=== PATIENT | male | born 1990 | race Caucasian/White ===

== ENCOUNTER 2023-02-16 15:31 | Observation (INO) | payer OTHER, SELFPAY ==
[2023-02-16] VITALS (7 sets, daily range): BP systolic 134–158; BP diastolic 80–98; PULSE 73–97; RESP 18–20; TEMP 36.8–37.4; O2SAT 96–97; BMI 26.5; BMI 27.5
--- NOTE | 2023-02-16 15:53 | ED_ITS ---
HPI - Abdominal Pain General Chief Complaint: Abdominal Pain Stated Complaint: Abdominal Pain Time Seen by Provider: 02/16/23 15:46 Source: patient Mode of arrival: walk-in Limitations: no limitations History of Present Illness HPI narrative: patient is a 32-year-old male who presents to the emergency department for the evaluation of abdominal pain that began this morning. He states he had an episode of diarrhea preceding the abdominal pain and has had approximately six episodes of vomiting since the abdominal pain began. He has felt nauseous this afternoon but has had no persistent vomiting. He has had a previous appendectomy with subsequent resection in 7th grade. He has had no other abdominal surgeries. He was noted to develop an umbilical hernia which has been evaluated by his surgeon previously, no surgical intervention is planned or has been done for the umbilical hernia. He reports pain just to the left of the umbilical hernia and lower. He denies urinary symptoms. he states he had mild cold s ymptoms yesterday no significant other illness. No sick contacts in the home. Related Data Home Medications Medication Instructions Recorded Confirmed No Known Home Medications 02/16/23 02/16/23 Allergies Allergy/AdvReac Type Severity Reaction Status Date / Time No Known Drug Allergies Allergy Verified 02/16/23 15:36 Review of Systems ROS Constitutional Reports: chills; Denies: fever Ears, nose, mouth, and throat Denies: throat pain Cardiovascular Denies: chest pain Respiratory Denies: shortness of breath or cough Gastrointestinal Reports: abdominal pain, nausea, vomiting and diarrhea Genitourinary Denies: painful urination Musculoskeletal Denies: back pain or neck pain Integumentary/Breast Denies: rash Neurological Denies: headache PFSH PFS Medical History (Updated 02/16/23 @ 17:02 by MARTINE Fulton) Surgical History (Updated 02/16/23 @ 16:12 by Connie Austin) Social History Smoking status: Light tobacco smoker Exam Narrative Exam Narrative: Gen.: Awake, alert, in no distress Head: Normocephalic, atraumatic ENT: Moist mucous membranes Respiratory: No respiratory distress, lungs clear bilaterally Cardio: Regular rate and rhythm Gastrointestinal: Abdomen is soft, nondistended. small umbilical hernia that is soft and reducible noted. Mild tenderness to palpation of the left lower quadrant and left mid abdomen. No guarding or rebound. Extremities: Moves extremities equally Psych: Normal mood and affect Neuro: No focal neuro deficit Skin: Warm, dry, intact Constitutional Vital Signs, click to edit/add: Last Vital Signs Temp 99.4 F 02/16/23 15:38 Pulse 74 02/16/23 15:38 Resp 20 02/16/23 15:38 BP 146/91 H 02/16/23 16:10 Pulse Ox 97 02/16/23 15:38 O2 Del Method Room Air 02/16/23 16:10 Course Vital Signs Vital signs: Vital Signs Temperature 99.4 F 02/16/23 15:38 Pulse Rate 74 02/16/23 15:38 Respiratory Rate 20 02/16/23 15:38 Blood Pressure 156/89 H 02/16/23 15:38 Pulse Oximetry 97 02/16/23 15:38 Oxygen Delivery Method Room Air 02/16/23 15:38 Temperature 99.4 F 02/16/23 15:38 Pulse Rate 74 02/16/23 15:38 Respiratory Rate 20 02/16/23 15:38 Blood Pressure 146/91 H 02/16/23 16:10 Pulse Oximetry 97 02/16/23 15:38 Oxygen Delivery Method Room Air 02/16/23 16:10 MDM - Abdominal Pain MDM Narrative Medical decision making narrative: patient treated with IV fluids, Toradol, Levsin, Zofran with improvement. He had no episodes of emesis in the emergency department. Vital signs are stable. Lab studies show minimal leukocytosis but otherwise no lab abnormalities and CT of the abdomen and pelvis with IV contrast shows the patient has a high-grade mid small bowel obstruction with a transition point in the central abdomen. I discussed this with Dr. Kong ([id number]) for general surgery who recommended admitting the patient to the hospitalist with general surgery as a consult as well as flat/upright abdominal x-rays in the morning. Patient will be nothing by mouth except for ice chips and medications. We will defer an NG tube at this time as the patient is comfortable and not actively vomiting. Patient admitted to the hospitalist, Dr. Morejon (1). Medical Records Attestation: I reviewed the patient's medical records. Lab Data Attestation: I reviewed the patient's lab results. Labs: Lab Results 02/16/23 Range/Units 15:57 WBC 15.4 H (4.0-11.0) 10^3/uL RBC 5.61 (4.70-6.10) 10^6/uL Hgb 16.4 (14.0-18.0) g/dL Hct 48.8 (42.0-54.0) % MCV 87.0 (80.0-94.0) fL MCH 29.2 (25.9-34.0) pg MCHC 33.6 (29.9-35.2) g/dL RDW 12.4 (11.0-15.0) % Plt Count 312 (150-450) 10^3/uL MPV 9.4 L (9.5-13.5) fL Neut % (Auto) 93.6 H (43.0-75.0) % Lymph % (Auto) 3.6 L (20.5-60.0) % [place] % (Auto) 2.1 (1.7-12.0) % Eos % (Auto) 0.0 L (0.9-7.0) % Baso % (Auto) 0.3 (0.2-2.0) % Neut # (Auto) 14.5 H (1.4-6.5) 10^3/uL Lymph # (Auto) 0.6 L (1.2-3.8) 10^3/uL [place] # (Auto) 0.3 (0.3-0.8) 10^3/uL Eos # (Auto) 0.0 (0.0-0.7) 10^3/uL Baso # (Auto) 0.0 (0.0-0.1) 10^3/uL Abs Immat Gran (auto) 0.06 H (0.00-0.03) 10^3/uL Imm/Tot Granulo (auto) 0.4 (0.0-0.5) % Sodium 134 L (136-145) mmol/L Potassium 3.8 (3.5-5.1) mmol/L Chloride 97 L (98-107) mmol/L Carbon Dioxide 26.8 (21.0-32.0) mmol/L Anion Gap 14.0 BUN 17.0 (7.0-18.0) mg/dL Creatinine 1.14 (0.70-1.30) mg/dL Est GFR ( Amer) >60 (>=60) Est GFR (Non-Af Amer) >60 (>=60) BUN/Creatinine Ratio 14.9 Glucose 124 H (74-106) mg/dL Lactate 1.8 (0.4-2.0) mmol/L Calcium 9.4 (8.5-10.1) mg/dL Total Bilirubin 0.4 (0.2-1.0) mg/dL AST 14 L (15-37) U/L ALT 23 (16-63) U/L Alkaline Phosphatase 88 (46-116) U/L Total Protein 8.2 (6.4-8.2) g/dL Albumin 4.5 (3.4-5.0) g/dL Globulin 3.7 g/dL Albumin/Globulin Ratio 1.2 Lipase 39.0 L (73.0-393.0) U/L Urine Color Yellow (YELLOW) Urine Clarity Clear (CLEAR) Urine pH 6.5 (5.0-9.0) Ur Specific [place] 1.025 (1.005-1.025) Urine Protein Trace (NEG/TRACE) mg/dL Urine Glucose (UA) Negative (NEGATIVE) mg/dL Urine Ketones 40 A (NEGATIVE) mg/dL Urine Occult Blood Negative (NEGATIVE) Urine Nitrite Negative (NEGATIVE) Urine Bilirubin Negative (NEGATIVE) Urine Urobilinogen 0.2 (0.2-1.0) EU/dL Ur Leukocyte Esterase Negative (NEGATIVE) Imaging Data CT scan - abdomen: Attestation: I have reviewed the pertinent imaging results. Radiologist's impression: Patient Name: CLAIRE BRAUN MRN: [facility]:[id number] date: 1990 Sex: M Assigned Patient Location: ER Current Patient Location: ER Accession/Order Number: [id number] Exam Date: 02/16/2023 16:16 Report Date: 02/16/2023 16:49 At the request of: SHIV WHITFIELD Procedure: CT abdomen pelvis w con EXAM: CT abdomen pelvis w con; [id number] REASON FOR EXAM: Abdominal pain TECHNIQUE: Helical CT images of the abdomen and pelvis were obtained after the administration of IV contrast. Multiplanar reformats were generated at the scanner. Dose reduction technique used: Automated exposure control and/or adjustment of the mA and/or kV according to patient size and/or use of iterative reconstruction technique. COMPARISON: None. FINDINGS: Visualized Chest: No pleural effusion or any significant pulmonary findings. Abdomen: Liver: Within normal limits. Gallbladder: No calcified gallstones. No acute inflammatory changes. Bile Ducts: No significant biliary ductal dilatation. Pancreas: No mass, ductal dilatation, or inflammatory changes. Spleen: No splenomegaly or focal lesion. Adrenals: No nodules. Kidneys: -No stones or hydronephrosis. -No mass. Vascular: No aortic aneurysm. Lymph Nodes: No adenopathy. Abdominal Wall: Small/medium sized fat-containing periumbilical hernia. There is a small amount of fluid within this hernia. Pelvis: No mass or adenopathy. Bowel/Peritoneal Cavity/Mesentery: -Short segment of moderately distended mid small bowel which measures up to 4.4 cm in diameter (series 3 image 67). Angulated transition point to decompressed bowel in the midabdomen (series 5 image 23). -Trace perienteric inflammatory changes surrounding the distended small bowel. -No free air. Musculoskeletal: No acute fracture or suspicious osseous lesion. IMPRESSION: Findings compatible with high-grade mid small bowel obstruction with transition point in the central abdomen. No imaging evidence of bowel ischemia or perforation. Electronically authenticated by: CHENG BOUDREAUX Date: 02/16/2023 16:49 Discharge Plan Discharge Chief Complaint: Abdominal Pain Patient Disposition: Admitted As Inpatient Time of Disposition Decision: 17:02
[2023-02-16 16:03] LABS: Basophils Percent Auto 0.3 % (0.2-2.0); Hematocrit 48.8 % (42.0-54.0); Hemoglobin 16.4 g/dL (14.0-18.0); Immature Granulocytes Abs Auto 0.06 10^3/uL (0.00-0.03); Immature Granulocytes Pct Auto 0.4 % (0.0-0.5); Lymphocytes Absolute Auto 0.6 10^3/uL (1.2-3.8); Lymphocytes Percent Auto 3.6 % (20.5-60.0); Mean Corpuscular HGB Conc 33.6 g/dL (29.9-35.2); Mean Corpuscular Hemoglobin 29.2 pg (25.9-34.0); Mean Platelet Volume 9.4 fL (9.5-13.5); Monocytes Absolute Auto 0.3 10^3/uL (0.3-0.8); Monocytes Percent Auto 2.1 % (1.7-12.0); Neutrophils Absolute Auto 14.5 10^3/uL (1.4-6.5); Neutrophils Percent Auto 93.6 % (43.0-75.0); Platelet Count 312 10^3/uL (150-450); Red Blood Count 5.61 10^6/uL (4.70-6.10); Red Cell Distribution Width 12.4 % (11.0-15.0); White Blood Count 15.4 10^3/uL (4.0-11.0)
[2023-02-16] MEDS: 0.9 % SODIUM CHLORIDE 1,000 ML 999 ML IV (16:04)
[2023-02-16] MEDS: ONDANSETRON PF 4 MG/2 ML VIAL IV (16:04)
[2023-02-16] MEDS: KETOROLAC TROMETHAMINE 30 MG/ML VIAL IVP (16:04)
[2023-02-16] MEDS: HYOSCYAMINE SULFATE 0.125 MG TAB.SUBL SL (16:04)
[2023-02-16 16:17] LABS: Alanine Aminotransferase 23 U/L (16-63); Albumin Globulin Ratio 1.2; Albumin Level 4.5 g/dL (3.4-5.0); Alkaline Phosphatase 88 U/L (46-116); Aspartate Amino Transferase 14 U/L (15-37); BUN Creatinine Ratio 14.9; Bilirubin Total 0.4 mg/dL (0.2-1.0); Calcium 9.4 mg/dL (8.5-10.1); Carbon Dioxide 26.8 mmol/L (21.0-32.0); Chloride 97 mmol/L (98-107); Estimated GFR (African America >60 (>=60); Estimated GFR (Non-African Ame >60 (>=60); Globulin 3.7 g/dL; Glucose 124 mg/dL (74-106); Potassium 3.8 mmol/L (3.5-5.1); Sodium 134 mmol/L (136-145); Total Protein 8.2 g/dL (6.4-8.2)
[2023-02-16 16:22] LABS: Bilirubin Urine NEGATIVE (NEGATIVE); Blood Urine NEGATIVE (NEGATIVE); Clarity Urine CLEAR (CLEAR); Color Urine YELLOW (YELLOW); Glucose Urine UA NEGATIVE (NEGATIVE); Ketones Urine 40 mg/dL (NEGATIVE); Leukocyte Esterase Urine NEGATIVE (NEGATIVE); Nitrite Urine NEGATIVE (NEGATIVE); Protein Urine TRACE mg/dL (NEG/TRACE); Specific Gravity Urine 1.025 (1.005-1.025); Urobilinogen Urine 0.2 EU/dL (0.2-1.0); pH Urine 6.5 (5.0-9.0)
[2023-02-16 16:23] LABS: Urine Microscopic Indicated NO
[2023-02-16 16:31] LABS: Lactate/Lactic Acid 1.8 mmol/L (0.4-2.0)
[2023-02-16] MEDS: LACTATED RINGER'S SOLUTION 1,000 ML 125 ML IV (18:34)
[2023-02-16] MEDS: ENOXAPARIN SODIUM 40 MG/0.4 ML SYRINGE SUBQ (20:25)
[2023-02-16] MEDS: MORPHINE SULFATE 2 MG/ML SYRINGE 1 MG IV (20:25)
[2023-02-17] MEDS: KETOROLAC TROMETHAMINE 30 MG/ML VIAL IVP ×4 (00:07→23:50)
[2023-02-17] MEDS: LACTATED RINGER'S SOLUTION 1,000 ML 125 ML IV ×3 (02:19→19:18)
[2023-02-17 04:13] VITALS: BP 130/77; PULSE 104; RESP 16; TEMP 36.9; O2SAT 95
[2023-02-17 05:48] LABS: Basophils Percent Auto 0.3 % (0.2-2.0); Eosinophils Percent Auto 0.2 % (0.9-7.0); Hematocrit 46.3 % (42.0-54.0); Hemoglobin 15.5 g/dL (14.0-18.0); Immature Granulocytes Abs Auto 0.06 10^3/uL (0.00-0.03); Immature Granulocytes Pct Auto 0.5 % (0.0-0.5); Lymphocytes Absolute Auto 2.1 10^3/uL (1.2-3.8); Mean Corpuscular HGB Conc 33.5 g/dL (29.9-35.2); Mean Corpuscular Hemoglobin 29.4 pg (25.9-34.0); Mean Corpuscular Volume 87.9 fL (80.0-94.0); Mean Platelet Volume 9.5 fL (9.5-13.5); Monocytes Absolute Auto 1.4 10^3/uL (0.3-0.8); Monocytes Percent Auto 10.8 % (1.7-12.0); Neutrophils Absolute Auto 9.5 10^3/uL (1.4-6.5); Neutrophils Percent Auto 72.2 % (43.0-75.0); Platelet Count 301 10^3/uL (150-450); Red Blood Count 5.27 10^6/uL (4.70-6.10); Red Cell Distribution Width 12.5 % (11.0-15.0); White Blood Count 13.1 10^3/uL (4.0-11.0)
--- NOTE | 2023-02-17 06:00 | XR_ITS ---
The [address] [address] Patient Name: CLAIRE BRAUN MRN: [id number] date: 1990 Sex: M Assigned Patient Location: [place] Current Patient Location: [place] Accession/Order Number: [id number] Exam Date: 02/17/2023 05:18 Report Date: 02/17/2023 06:53 At the request of: DANIEL FREEMAN Procedure: XR acute abdomen series EXAMINATION: XR acute abdomen series HISTORY: sbo ; small bowel obstruction follow-up COMPARISON: CT abdomen pelvis 02/16/2023 FINDINGS: LUNGS: No infiltrate, pneumothorax, or pleural effusion. MEDIASTINUM: No abnormal widening. BOWEL GAS PATTERN: Persistent stool-filled dilated loop of small bowel within lower left abdomen 5.4 cm in diameter. Adjacent loop of small bowel with fluid level. Unremarkable colon. FREE AIR: None. CALCIFICATIONS: None significant. BONES: No fracture or visible bone lesion. OTHER: Negative. XR/XR acute abdomen series IMPRESSION: 1. Persistence dilated stool-filled loop of small bowel within lower left abdomen suggesting obstruction. Allowing for differences in technique, no appreciable change. Electronically authenticated by: RGADY CAMEJO Date: 02/17/2023 06:53
[2023-02-17 06:02] LABS: Alanine Aminotransferase 30 U/L (16-63); Albumin Globulin Ratio 1.1; Albumin Level 3.8 g/dL (3.4-5.0); Alkaline Phosphatase 76 U/L (46-116); Anion Gap 11.7; Aspartate Amino Transferase 13 U/L (15-37); BUN Creatinine Ratio 10.7; Bilirubin Total 0.8 mg/dL (0.2-1.0); Calcium 8.8 mg/dL (8.5-10.1); Chloride 104 mmol/L (98-107); Estimated GFR (African America >60 (>=60); Estimated GFR (Non-African Ame >60 (>=60); Globulin 3.6 g/dL; Glucose 100 mg/dL (74-106); Potassium 3.7 mmol/L (3.5-5.1); Sodium 141 mmol/L (136-145); Total Protein 7.4 g/dL (6.4-8.2)
--- NOTE | 2023-02-17 08:36 | PM.HP ---
H&P: HPI History of Present Illness Chief complaint: Abdominal Pain, Small Bowel Obstruction Narrative: patient is a 32 year old [place] male with past medical history of abdominal surgeries. In the second grade had ruptured appendix which lead to bowel resection. In the 7th grade he had a surgery for bowel obstruction secondary to adhesions. He thinks over the years he may have had some obstructions but they all resolved at home. This is his first hospitalization for SBO. He was experiencing some nausea/vomiting, presented to the ER yesterday. X-ray showed SBO. Was admitted for further plan of care. Pain has been under control with Toradol. He denies any n/v/d and has been passing gas. He denies any other medical history, non-smoker, has an active job. He has an umbilical hernia that has been observed over the years, never causing him issues. No fevers. pain controlled. His mother is also present at bedside. Review of Systems ROS Narrative ROS: a complete review of systems were reviewed with patient and are positive as below or listed in History of Chief Complaint. General: no fever, chills, night sweats Head: no headache, trauma, visual changes, nausea or vomiting Skin: no reported rashes, itching or sores Eyes: no blurriness of vision Ears: no reported hearing loss, vertigo, earache, or tinnitus Throat: no sore throat, hoarseness, swelling of neck, or tongue pain Heart: no chest pain Lungs: no shortness of breath or cough GI: no diarrhea, but some vomiting/nausea Urinary: no urinary urgency, frequency or pain Neuro: no numbness or tingling HEM: no bleeding issues or bruising ENDO: no thyroid problems Psych: no anxiety or depression PFSH PFSH Medical History Surgical History Family History Other Family history not known due to adoption Social History Within the past year, how often did you have a drink containing alcohol: 2-3 times a week Within the past year, how many standard drinks containing alcohol did you have on a typical day: 1 or 2 Within the past year, how often did you have six or more drinks on one occasion: less than monthly Total score: 1 Score interpretation: A score of 4 or more indicates drinking is likely to affect patient's safety. Smoking status: Light tobacco smoker Do you use any of these nicotine containing products: vaping products Nicotine containing products detail: vape marijuana Non-prescribed substance use: cannabis (any form) Previous occupational history: [employer] Highest level of school completed/degree received: high school graduate Are you now , , , , never or living with a partner: Little interest or pleasure in doing things: not at all Feeling down, depressed, or hopeless: not at all Feel stressed/tense/nervous/anxious/difficulty sleeping: not at all Gender Identity: male Meds Home Medications and Allergies Home Medications Medication Instructions Recorded Confirmed Type No Known Home Medications 02/16/23 02/16/23 History Allergies Allergy/AdvReac Type Severity Reaction Status Date / Time No Known Drug Allergies Allergy Verified 02/16/23 15:36 Exam Narrative Exam Narrative: General: Patient is alert, and oriented to person, place and time with normal affect, proper hygiene Skin: no visible rashes, or ulcers Head: atraumatic, acephalic Eyes: PERRLA, no nystagmus present, conjunctiva clear, no scleral icterus Ears: normal gross auditory acuity Nose: symmetric, no discharge, no maxillary or frontal sinus tenderness Mouth/Throat: no erythema, exudate, or tonsillar enlargement, normal dentition Neck: no masses palpated, normal thyroid, no JVD or audible carotid bruits Heart: Normal rate and rhythm, no murmurs/rubs/gallops Lungs: no audible wheezes, crackles and normal breath sounds all lung [place] Abdomen: hyperactive bowel sounds, no distension, reducible umbilical hernia, no organomegaly, some tenderness palpated LLQ Musculoskeletal: muscle atrophy noted, ROM is limited due to being in hospital bed, no swelling bilateral lower extremities Vascular: Normal carotid, radial, femoral, posterior tibial, and dorsalis pedis pulses Lymph: no supraclavicular, axillary, or anterior/posterior cervical adenopathy Neuro: CN II-X grossly intact, normal sensation upper and lower extremities Constitutional Vital Signs, click to edit/add: Last Vital Signs Temp 98.5 F 02/17/23 04:13 Pulse 104 H 02/17/23 04:13 Resp 16 02/17/23 04:13 BP 130/77 02/17/23 04:13 Pulse Ox 95 02/17/23 04:13 O2 Del Method Room Air 02/17/23 04:13 Results Labs Labs: Short CBC 02/16/23 02/17/23 Range/Units 15:57 05:34 WBC 15.4 H 13.1 H (4.0-11.0) 10^3/uL Hgb 16.4 15.5 (14.0-18.0) g/dL Hct 48.8 46.3 (42.0-54.0) % Plt Count 312 301 (150-450) 10^3/uL BMP 02/16/23 02/17/23 15:57 05:37 Sodium 134 L 141 Potassium 3.8 3.7 Chloride 97 L 104 Carbon Dioxide 26.8 29.0 BUN 17.0 13.0 Creatinine 1.14 1.21 Glucose 124 H 100 Calcium 9.4 8.8 Liver Function 02/16/23 02/17/23 Range/Units 15:57 05:37 Total Bilirubin 0.4 0.8 (0.2-1.0) mg/dL AST 14 L 13 L (15-37) U/L ALT 23 30 (16-63) U/L Alkaline Phosphatase 88 76 (46-116) U/L Albumin 4.5 3.8 (3.4-5.0) g/dL Urine 02/16/23 Range/Units 15:57 Urine Color Yellow (YELLOW) Urine Clarity Clear (CLEAR) Urine pH 6.5 (5.0-9.0) Ur Specific [place] 1.025 (1.005-1.025) Urine Protein Trace (NEG/TRACE) mg/dL Urine Glucose (UA) Negative (NEGATIVE) mg/dL Assessment and Plan Assessment and Plan (1) Small bowel obstruction: Assessment and Plan: surgery consult, Dr. Kong. Following recommendations. Bowel rest, NPO. Not requiring NG. Labs stable, repeat X-ray is unchanged. continue bowel rest, encourage ambulation. WBC's 15.4 to 13.1. continue IVF and pain control as needed with Toradol. (2) Abdominal pain: (3) Intestinal adhesions: Plan full code lovenox for DVT prophylaxis patient is in observation status, is not requiring NG.
[2023-02-17] MEDS: ENOXAPARIN SODIUM 40 MG/0.4 ML SYRINGE SUBQ (08:58)
--- NOTE | 2023-02-17 09:27 | CM.NOTE ---
Rounding with Dr. Morejon. Patient's mother at bedside. Discussed nausea improved, no NG at this time, continue IV fluids, encouraged ambulation. Pt. also voices he is passing gas. Pt. denies any needs at this time. Surgeon discussed conservative measures with Dr. Morejon at this time. No anticipated discharge needs.
--- NOTE | 2023-02-17 10:06 | P.GSCN_ITS ---
History of Present Illness Consult details Consult date: 02/17/23 Reason for consult: abdominal pain Requesting physician: Daniel Morejon Narrative: Patient is a 32-year-old white male, who is seen in consultation at the request of the attending hospitalist Dr. Daniel Morejon. Consultation is requested for surgical evaluation and management recommendations in regard to a patient presenting with acute left lower quadrant abdominal pain in association with both nausea and vomiting. The patient is seen in surgical consultation on the MedSurg unit at [facility], at 0915 hrs. 02/17/2023. In the course of consultation, the patient's electronic medical record is comprehensively reviewed. The patient is interviewed and examined. The results of all available laboratory tests are reviewed and noted. Both a diagnostic contrast-enhanced CT scan examination of the abdomen and pelvis, and a follow-up acute abdominal series are personally viewed and interpreted. According to the patient, he had been feeling well when he went to bed on the evening of 02/15/2023. Upon awakening at around 0700 hrs. 02/16/2023, the patient noticed some cramping discomfort in the periumbilical and left lower quadrant regions of his abdomen. He got his kids off to school on their first day, and then ended up going back to bed at around 0900 hrs. Shortly thereafter, the patient was suddenly awakened with intense nausea and ended up vomiting approximately 6 times in succession. As the day progressed, the vomiting subsided but the patient continued to experience constant intense pain and discomfort in his left lower quadrant. By afternoon, the patient realized that something was just not right, and he elected to seek care in the emergency department at [facility]. Upon presentation, routine lab work was obtained. A diagnostic contrast- enhanced CT scan examination of the abdomen and pelvis was performed. By history, this patient had undergone an open appendectomy at the approximate age of 5. Nearly 5 years later, the patient required a second laparotomy for management of a high-grade small bowel obstruction. The patient recalls that his intestine had twisted but he is uncertain as to whether the operation entailed an intestinal resection or simple reduction of the volvulus. Clinically, the patient denies any fever or chills. He has not recently been in contact with any other sick individuals. The patient does report having had a loose diarrheal stool at the time of the onset of his pain 02/16/2023. His bowels have not moved since he has been here in the hospital. Initial evaluation in the emergency department showed an elevation in white blood cell count of 15,400 with a slight shift in the white cell differential. The patient was seen to be hyponatremic and hypochloremic owing to the history of vomiting. Hepatic transaminase levels were within normal limits. Diagnostic CT scan examination of the abdomen and pelvis 02/16/2023, using IV contrast only, shows an isolated segment of moderately distended mid small bowel measuring 4.4 cm in diameter. There is fecalization of small bowel contents within this segment. There is suggestion of an angulated transition point beyond which the small intestine appears decompressed. Minimal perienteric inflammatory changes are noted. There is no evidence of free fluid or free air. Moderate amount of stool is seen distributed throughout the colon. Incidental note is made of a periumbilical incisional ventral hernia. The hernia contains adipose tissue only. There is no evidence of inguinal hernia. Following 16 hours of inpatient hospitalization, the patient reports that he is feeling significantly better this morning. He no longer reports any nausea. He has not vomited since yesterday morning. Through the mock up maker hours, the patient has been passing copious amounts of flatus. He has not had a bowel movement since he was hospitalized last evening. The patient notes that the intensity of discomfort in his left lower quadrant has lessened considerably. He still reports some residual tenderness and pressure in this area. Patient denies feeling bloated. He does not note any visible distention of his abdomen. The abdomen is otherwise soft. Patient denies any difficulty urinating. Repeat laboratory profile 02/17/2023, shows a decrease in white blood cell count at 13,100. The white cell differential was normal. Serum electrolytes are normal, with normalization of both sodium and potassium. Hepatic transaminase levels are normal. Follow-up acute abdominal series 02/17/2023, shows persistence of a stool-filled dilated loop of small bowel within the left lower quadrant. An adjacent air- fluid level is noted. Gas and stool are seen distributed throughout the colon. Allowing for differences in technique, picture does not appear significantly different radiographically in comparison to last evenings CT scan. Review of Systems ROS Narrative 12 point review of systems is negative except as documented in [place] [facility] [place] History Surgical History Family History Other Family history not known due to adoption Social History Within the past year, how often did you have a drink containing alcohol: 2-3 times a week Within the past year, how many standard drinks containing alcohol did you have on a typical day: 1 or 2 Within the past year, how often did you have six or more drinks on one occasion: less than monthly Total score: 1 Score interpretation: A score of 4 or more indicates drinking is likely to affect patient's safety. Smoking status: Light tobacco smoker Do you use any of these nicotine containing products: vaping products Nicotine containing products detail: vape marijuana Non-prescribed substance use: cannabis (any form) Previous occupational history: [employer] Highest level of school completed/degree received: high school graduate Are you now , , , , never or living with a partner: Little interest or pleasure in doing things: not at all Feeling down, depressed, or hopeless: not at all Feel stressed/tense/nervous/anxious/difficulty sleeping: not at all Gender Identity: male Meds Home Medications and Allergies Home Medications Medication Instructions Recorded Confirmed Type No Known Home Medications 02/16/23 02/16/23 History Allergies Allergy/AdvReac Type Severity Reaction Status Date / Time No Known Drug Allergies Allergy Verified 02/16/23 15:36 Exam Constitutional Vital Signs, click to edit/add: Last Vital Signs Temp 98.5 F 02/17/23 04:13 Pulse 104 H 02/17/23 04:13 Resp 16 02/17/23 04:13 BP 130/77 02/17/23 04:13 Pulse Ox 95 02/17/23 04:13 O2 Del Method Room Air 02/17/23 04:13 Other: Well-developed, well-nourished, young, otherwise healthy white male. No a pparent distress. HENMT Other: Head normocephalic and atraumatic. Pupils equally round and reactive to light. Extraocular movements intact. The nasal and oropharynx are clear without erythema or exudate. Mucous membranes are moist. There are no oral or pharyngeal mass lesions. Neck & C-Spine Other: Trachea midline. Carotid pulses 2+ bilaterally. No thyromegaly. No jugular venous distention. Chest Other: Unlabored respirations. Equal chest wall expansion bilaterally. Lungs are clear to auscultation bilaterally. Cardio Other: Heart regular rate and rhythm. Normal S1 and S2. GI Other: The abdomen is soft and nondistended. There is no tympany to percussion. No hepatosplenomegaly is detected. An intra-abdominal mass is not appreciated. Minimal tenderness is noted to palpation over the left lower quadrant. The right lower quadrant, suprapubic region, and upper quadrants bilaterally are all nontender. Flanks are nontender. There is no muscular wall rigidity or guarding. No rebound tenderness is elicited. Well-healed incisions are seen from previous laparotomy. There is an approximate 4 cm reducible periumbilical incisional ventral hernia. Other: Normal male external genitalia. No evidence of right or left inguinal hernia Extremity Other: Normal range of motion in all extremities x4. No cyanosis or dependent lower extremity edema. Neuro Other: Neurologic status grossly intact and without obvious focal deficits. Psych Other: Pleasant and conversant. Normal mood and affect. Good insight and understanding. Results Labs Labs: Abnormal lab results 02/16/23 02/17/23 02/17/23 Range/Units 15:57 05:34 05:37 WBC 15.4 H 13.1 H (4.0-11.0) 10^3/uL MPV 9.4 L (9.5-13.5) fL Neut % (Auto) 93.6 H (43.0-75.0) % Lymph % (Auto) 3.6 L 16.0 L (20.5-60.0) % Eos % (Auto) 0.0 L 0.2 L (0.9-7.0) % Neut # (Auto) 14.5 H 9.5 H (1.4-6.5) 10^3/uL Lymph # (Auto) 0.6 L (1.2-3.8) 10^3/uL Sac # (Auto) 1.4 H (0.3-0.8) 10^3/uL Abs Immat Gran (auto) 0.06 H 0.06 H (0.00-0.03) 10^3/uL Sodium 134 L (136-145) mmol/L Chloride 97 L (98-107) mmol/L Glucose 124 H (74-106) mg/dL AST 14 L 13 L (15-37) U/L Lipase 39.0 L (73.0-393.0) U/L Urine Ketones 40 A (NEGATIVE) mg/dL Diabetes panel 02/16/23 02/17/23 Range/Units 15:57 05:37 Sodium 134 L 141 (136-145) mmol/L Potassium 3.8 3.7 (3.5-5.1) mmol/L Chloride 97 L 104 (98-107) mmol/L Carbon Dioxide 26.8 29.0 (21.0-32.0) mmol/L BUN 17.0 13.0 (7.0-18.0) mg/dL Creatinine 1.14 1.21 (0.70-1.30) mg/dL Glucose 124 H 100 (74-106) mg/dL Calcium 9.4 8.8 (8.5-10.1) mg/dL AST 14 L 13 L (15-37) U/L ALT 23 30 (16-63) U/L Alkaline Phosphatase 88 76 (46-116) U/L Total Protein 8.2 7.4 (6.4-8.2) g/dL Albumin 4.5 3.8 (3.4-5.0) g/dL Calcium panel 02/16/23 02/17/23 Range/Units 15:57 05:37 Calcium 9.4 8.8 (8.5-10.1) mg/dL Albumin 4.5 3.8 (3.4-5.0) g/dL Pituitary panel 02/16/23 02/17/23 Range/Units 15:57 05:37 Sodium 134 L 141 (136-145) mmol/L Potassium 3.8 3.7 (3.5-5.1) mmol/L Chloride 97 L 104 (98-107) mmol/L Carbon Dioxide 26.8 29.0 (21.0-32.0) mmol/L BUN 17.0 13.0 (7.0-18.0) mg/dL Creatinine 1.14 1.21 (0.70-1.30) mg/dL Glucose 124 H 100 (74-106) mg/dL Calcium 9.4 8.8 (8.5-10.1) mg/dL Adrenal panel 02/16/23 02/17/23 Range/Units 15:57 05:37 Sodium 134 L 141 (136-145) mmol/L Potassium 3.8 3.7 (3.5-5.1) mmol/L Chloride 97 L 104 (98-107) mmol/L Carbon Dioxide 26.8 29.0 (21.0-32.0) mmol/L BUN 17.0 13.0 (7.0-18.0) mg/dL Creatinine 1.14 1.21 (0.70-1.30) mg/dL Glucose 124 H 100 (74-106) mg/dL Calcium 9.4 8.8 (8.5-10.1) mg/dL Total Bilirubin 0.4 0.8 (0.2-1.0) mg/dL AST 14 L 13 L (15-37) U/L ALT 23 30 (16-63) U/L Alkaline Phosphatase 88 76 (46-116) U/L Total Protein 8.2 7.4 (6.4-8.2) g/dL Albumin 4.5 3.8 (3.4-5.0) g/dL All other labs normal. Imaging Abdominal x-ray: report reviewed and image reviewed Abdomen CT scan report/results: report reviewed and image reviewed Additional studies: Patient Name: CLAIRE BRAUN MRN: [id number] date: 1990 Sex: M Assigned Patient Location: ER Current Patient Location: ER Accession/Order Number: [id number] Exam Date: 02/16/2023 16:16 Report Date: 02/16/2023 16:49 At the request of: SHIV WHITFIELD Procedure: CT abdomen pelvis w con EXAM: CT abdomen pelvis w con; [id number] REASON FOR EXAM: Abdominal pain TECHNIQUE: Helical CT images of the abdomen and pelvis were obtained after the administration of IV contrast. Multiplanar reformats were generated at the scanner. Dose reduction technique used: Automated exposure control and/or adjustment of the mA and/or kV according to patient size and/or use of iterative reconstruction technique. COMPARISON: None. FINDINGS: Visualized Chest: No pleural effusion or any significant pulmonary findings. Abdomen: Liver: Within normal limits. Gallbladder: No calcified gallstones. No acute inflammatory changes. Bile Ducts: No significant biliary ductal dilatation. Pancreas: No mass, ductal dilatation, or inflammatory changes. Spleen: No splenomegaly or focal lesion. Adrenals: No nodules. Kidneys: -No stones or hydronephrosis. -No mass. Vascular: No aortic aneurysm. Lymph Nodes: No adenopathy. Abdominal Wall: Small/medium sized fat-containing periumbilical hernia. There is a small amount of fluid within this hernia. Pelvis: No mass or adenopathy. Bowel/Peritoneal Cavity/Mesentery: -Short segment of moderately distended mid small bowel which measures up to 4.4 cm in diameter (series 3 image 67). Angulated transition point to decompressed bowel in the midabdomen (series 5 image 23). -Trace perienteric inflammatory changes surrounding the distended small bowel. -No free air. Musculoskeletal: No acute fracture or suspicious osseous lesion. CT/CT abdomen pelvis w con IMPRESSION: Findings compatible with high-grade mid small bowel obstruction with transition point in the central abdomen. No imaging evidence of bowel ischemia or perforation. Electronically authenticated by: CHENG BOUDREAUX Date: 02/16/2023 16:49 Patient Name: CLAIRE BRAUN MRN: [id number] date: 1990 Sex: M Assigned Patient Location: [place] Current Patient Location: [place] Accession/Order Number: [id number] Exam Date: 02/17/2023 05:18 Report Date: 02/17/2023 06:53 At the request of: DANIEL MOREJON Procedure: XR acute abdomen series EXAMINATION: XR acute abdomen series HISTORY: sbo ; small bowel obstruction follow-up COMPARISON: CT abdomen pelvis 02/16/2023 FINDINGS: LUNGS: No infiltrate, pneumothorax, or pleural effusion. MEDIASTINUM: No abnormal widening. BOWEL GAS PATTERN: Persistent stool-filled dilated loop of small bowel within lower left abdomen 5.4 cm in diameter. Adjacent loop of small bowel with fluid level. Unremarkable colon. FREE AIR: None. CALCIFICATIONS: None significant. BONES: No fracture or visible bone lesion. OTHER: Negative. XR/XR acute abdomen series IMPRESSION: 1. Persistence dilated stool-filled loop of small bowel within lower left abdomen suggesting obstruction. Allowing for differences in technique, no appreciable change. Electronically authenticated by: GRADY CAMEJO Date: 02/17/2023 06:53 Assessment and Plan Assessment and Plan (1) Small bowel obstruction: (2) Abdominal pain: (3) Intestinal adhesions: Plan 1) Following 16 hours of n.p.o./IV fluid hydration/bowel rest, patient appears to be improving clinically 2) Continue conservative nonoperative management 3) Small bowel follow-through Gastrografin challenge 4) Discussed with the attending hospitalist Dr. Daniel Morejon
[2023-02-17 11:34] VITALS: O2SAT 95
[2023-02-17] MEDS: ONDANSETRON PF 4 MG/2 ML VIAL IV (13:51)
[2023-02-17 13:55] VITALS: BP 130/80; PULSE 86; RESP 18; TEMP 36.9; O2SAT 96
--- NOTE | 2023-02-17 14:50 | FL_ITS ---
The [address] [address] Patient Name: CLAIRE BRAUN MRN: [id number] date: 1990 Sex: M Assigned Patient Location: [place] Current Patient Location: [place] Accession/Order Number: [id number] Exam Date: 02/17/2023 14:45 Report Date: 02/17/2023 15:11 At the request of: KRISTINA VALDES Procedure: FL small bowel EXAMINATION: FL small bowel HISTORY: Possible mid small bowel obstruction COMPARISON: 02/17/2023 TECHNIQUE: Small bowel series was performed in the usual manner. No fire systems inspector abdominal radiograph was performed. Standard level fluoroscopic mode of operation utilized. FINDINGS: DUODENUM: Normal. No ulceration or diverticulum. JEJUNUM: Normal. Normal motility. No obstruction. Dilated loop of small bowel in the left mid abdomen measuring 5.7 cm, contrast opacified. ILEUM: Normal. Normal motility. No obstruction or visible lesion. OTHER: Large bowel and rectum are opacified at one hour and 45 minutes FL/FL small bowel IMPRESSION: Nonobstructive bowel gas pattern. Dilated loop of small bowel in the left mid abdomen with contrast opacification Electronically authenticated by: NEYDA TERRAZAS Date: 02/17/2023 15:11
[2023-02-17 19:32] VITALS: O2SAT 96
[2023-02-17 20:00] VITALS: RESP 18
[2023-02-17 22:00] VITALS: BP 115/76; PULSE 93; RESP 16; TEMP 37; O2SAT 93
[2023-02-18] MEDS: LACTATED RINGER'S SOLUTION 1,000 ML 125 ML IV (03:36)
[2023-02-18 05:11] VITALS: O2SAT 95
[2023-02-18 05:12] LABS: Basophils Absolute Auto 0.1 10^3/uL (0.0-0.1); Basophils Percent Auto 0.6 % (0.2-2.0); Eosinophils Absolute Auto 0.1 10^3/uL (0.0-0.7); Eosinophils Percent Auto 1.3 % (0.9-7.0); Hematocrit 41.9 % (42.0-54.0); Hemoglobin 13.9 g/dL (14.0-18.0); Immature Granulocytes Abs Auto 0.03 10^3/uL (0.00-0.03); Immature Granulocytes Pct Auto 0.4 % (0.0-0.5); Lymphocytes Absolute Auto 2.3 10^3/uL (1.2-3.8); Lymphocytes Percent Auto 29.6 % (20.5-60.0); Mean Corpuscular HGB Conc 33.2 g/dL (29.9-35.2); Mean Corpuscular Hemoglobin 29.6 pg (25.9-34.0); Mean Corpuscular Volume 89.3 fL (80.0-94.0); Monocytes Percent Auto 12.3 % (1.7-12.0); Neutrophils Absolute Auto 4.3 10^3/uL (1.4-6.5); Neutrophils Percent Auto 55.8 % (43.0-75.0); Platelet Count 265 10^3/uL (150-450); Red Blood Count 4.69 10^6/uL (4.70-6.10); Red Cell Distribution Width 12.5 % (11.0-15.0); White Blood Count 7.7 10^3/uL (4.0-11.0)
[2023-02-18 05:38] LABS: Alanine Aminotransferase 26 U/L (16-63); Albumin Globulin Ratio 0.9; Albumin Level 3.3 g/dL (3.4-5.0); Alkaline Phosphatase 75 U/L (46-116); Anion Gap 6.3; Aspartate Amino Transferase 13 U/L (15-37); BUN Creatinine Ratio 13.6; Bilirubin Total 0.4 mg/dL (0.2-1.0); Calcium 8.3 mg/dL (8.5-10.1); Chloride 104 mmol/L (98-107); Estimated GFR (African America >60 (>=60); Estimated GFR (Non-African Ame >60 (>=60); Globulin 3.5 g/dL; Glucose 108 mg/dL (74-106); Potassium 3.3 mmol/L (3.5-5.1); Sodium 136 mmol/L (136-145); Total Protein 6.8 g/dL (6.4-8.2)
[2023-02-18 06:00] VITALS: BP 115/74; PULSE 80; RESP 18; TEMP 36.9; O2SAT 94
[2023-02-18 08:00] VITALS: RESP 18
--- NOTE | 2023-02-18 10:16 | PM.DS1 ---
DS: Providers Provider Date of admission: 02/16/23 17:47 Primary care physician: HODA ZHANG Admitting clinician: Monik Morejon Consults: 02/16/23 17:32 Consult to General Surgeon Routine Consulting Provider: Spencer Kong Reason for consultation: SBO Has provider been notified: Yes Discharging clinician: Monik Morejon DS: Diagnosis Discharge Diagnosis (1) Small bowel obstruction: (2) Abdominal pain: (3) Intestinal adhesions: DS: Summary Hospital Course Hospital Course: patient is a 32 year old male with past medical history of abdominal surgeries. In the second grade had ruptured appendix which lead to bowel resection. In the 7th grade he had a surgery for bowel obstruction secondary to adhesions. He thinks over the years he may have had some obstructions but they all resolved at home. This is his first hospitalization for SBO. He was experiencing some nausea/vomiting, presented to the ER yesterday. X-ray showed SBO. Was admitted for further plan of care. Pain has been under control with Toradol. He denies any n/v/d and has been passing gas. He denies any other medical history, non-smoker, has an active job. He has an umbilical hernia that has been observed over the years, never causing him issues. No fevers. Yesterday had a Small bowel follow-through Gastrografin challenge and the SBO resolved, he began having bowel movements. At the time of discharge, his symptoms have resolved. He is ready to go home. Status at Discharge Functional status at discharge: independent ambulation Overall status at discharge: patient is back to baseline Time Spent with Patient Time attestation: Total time spent providing and/or coordinating discharge services: Time spent: less than 30 minutes Exam Narrative Exam Narrative: General: Patient is alert, and oriented to person, place and time with normal affect, proper hygiene Skin: no visible rashes, or ulcers Head: atraumatic, acephalic Heart: Normal rate and rhythm, no murmurs/rubs/gallops Lungs: no audible wheezes, crackles and normal breath sounds all lung knutson Abdomen: Normal audible bowel sounds, no distension, No palpable masses, no organomegaly, no rebound/guarding/ or rigidity Musculoskeletal: muscle atrophy noted, ROM is limited due to being in hospital bed, no swelling bilateral lower extremities Vascular: Normal carotid, radial, femoral, posterior tibial, and dorsalis pedis pulses Lymph: no supraclavicular, axillary, or anterior/posterior cervical adenopathy Neuro: CN II-X grossly intact, normal sensation upper and lower extremities Constitutional Vital Signs, click to edit/add: Last Vital Signs Temp 98.5 F 02/18/23 06:00 Pulse 80 02/18/23 06:00 Resp 18 02/18/23 08:00 BP 115/74 02/18/23 06:00 Pulse Ox 94 L 02/18/23 06:00 O2 Del Method Room Air 02/18/23 06:00 DS: Data Data Completed and Pending Labs on day of discharge: Labs from last 24 hours 02/18/23 04:39 WBC 7.7 RBC 4.69 L Hgb 13.9 L Hct 41.9 L MCV 89.3 MCH 29.6 MCHC 33.2 RDW 12.5 Plt Count 265 MPV 10.0 Neut % (Auto) 55.8 Lymph % (Auto) 29.6 [place] % (Auto) 12.3 H Eos % (Auto) 1.3 Baso % (Auto) 0.6 Neut # (Auto) 4.3 Lymph # (Auto) 2.3 [place] # (Auto) 1.0 H Eos # (Auto) 0.1 Baso # (Auto) 0.1 Abs Immat Gran (auto) 0.03 Imm/Tot Granulo (auto) 0.4 Sodium 136 Potassium 3.3 L Chloride 104 Carbon Dioxide 29.0 Anion Gap 6.3 BUN 14.0 Creatinine 1.03 Est GFR ( Amer) >60 Est GFR (Non-Af Amer) >60 BUN/Creatinine Ratio 13.6 Glucose 108 H Calcium 8.3 L Total Bilirubin 0.4 AST 13 L ALT 26 Alkaline Phosphatase 75 Total Protein 6.8 Albumin 3.3 L Globulin 3.5 Albumin/Globulin Ratio 0.9 Discharge Plan Discharge Disposition: Home, Self-Care Condition: Good Discharge Medications: No Action No Known Home Medications Activity: resume usual activities as tolerated Diet: advance to your usual diet Patient Instructions: Acute Abdominal Pain (DC), Bowel Obstruction (DC) Forms: Portal Instructions Follow Up Appointments: Follow up appt. with Dr. Zhang on Feb.24 @ 10:30am Office #: [phone]
--- NOTE | 2023-02-18 10:38 | CM.NOTE ---
Rounds made with Dr. Morejon. Plan for discharge is today.
--- NOTE | 2023-02-19 13:49 | CM.DCFOLLOWU ---
Person spoke with:patient How are you feeling? a little tender, overall well, going back to work How is your pain? very little Did you understand your discharge instructions? yes Do you have any questions about your discharge instructions? no Were you given any prescriptions at discharge? no Were you able to get your prescriptions filled? Do you understand how to take your medications as ordered? N/A Do you have any questions about your follow up appointment and do you plan to keep your follow up appointment? no questions, follow up scheduled 02/24/23 Is there anything else that you would like to discuss? no Questions/Comments/Concerns/Other:
== END 2023-02-18 10:21 | disposition home or self-care (01) ==
LOC: ER 17:05 → MS 20:55
PROVIDERS: Physician Assistant; Admitting Provider Family Medicine; Emergency Provider Emergency Medicine Emergency Medical Services; PCP Internal Medicine; Visit Provider Family Medicine
DX: K56.50 Intestinal adhesions [bands], unspecified as to partial versus complete obstruction (principal); R10.9 Unspecified abdominal pain; F17.210 Nicotine dependence, cigarettes, uncomplicated; F12.90 Cannabis use, unspecified, uncomplicated
CPT/HCPCS: 36415; 74022; 74177; 74250; 80053; 81003; 83605; 83690; 85025; 94761; 96361; 96372; 96374; 96375; 96376; 99285; G0378; Q9963; Q9967

== ENCOUNTER 2023-02-23 10:51 | Emergency (ER) | payer OTHER, SELFPAY ==
[2023-02-23] VITALS (25 sets, daily range): BP systolic 106–154; BP diastolic 65–99; PULSE 62–127; RESP 14–26; TEMP 36.6–37.1; O2SAT 96–100; BMI 30.7
--- NOTE | 2023-02-23 11:05 | ECG_ITS ---
The 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
--- NOTE | 2023-02-23 11:07 | ED.GENADUL1 ---
HPI - General Adult General Chief complaint: Abdominal Pain Stated complaint: edilsonhhrea, dizziness Time Seen by Provider: 02/23/23 11:03 Source: patient Mode of arrival: Wheelchair History of Present Illness HPI narrative: patient here with parents she I believe. He presented to the hospital lobby today with R burgundy colored stools starting today. He was just released from this hospital recently after having a small bowel obstruction. He was treated medically. He did not have upper or lower endoscopy. He had no gastrointestinal bleeding at that time. He had previous surgeries when he was much younger ruptured appendix and small bowel obstruction but no recent procedures. He's not on any NSAIDs. He takes no anticoagulants. He says he drinks alcohol occasionally but not on a regular basis. Denies any previous history of hepatitis. He is not vomiting up any blood. He's not seen blood in the stools previously Related Data Home Medications Medication Instructions Recorded Confirmed No Known Home Medications 02/16/23 02/16/23 Allergies Allergy/AdvReac Type Severity Reaction Status Date / Time No Known Drug Allergies Allergy Verified 02/16/23 15:36 [facility] Medical History Surgical History Family History Other Family history not known due to adoption Social History Within the past year, how often did you have a drink containing alcohol: 2-3 times a week Within the past year, how many standard drinks containing alcohol did you have on a typical day: 1 or 2 Within the past year, how often did you have six or more drinks on one occasion: less than monthly Total score: 1 Score interpretation: A score of 4 or more indicates drinking is likely to affect patient's safety. Smoking status: Light tobacco smoker Do you use any of these nicotine containing products: vaping products Nicotine containing products detail: vape marijuana Non-prescribed substance use: cannabis (any form) Previous occupational history: [employer] Highest level of school completed/degree received: high school graduate Are you now , , , , never or living with a partner: Little interest or pleasure in doing things: not at all Feeling down, depressed, or hopeless: not at all Feel stressed/tense/nervous/anxious/difficulty sleeping: not at all Gender Identity: male Exam Narrative Exam Narrative: this patient was brought back to the Emergency Room immediately. He is diaphoretic and clammy and shocky appearance. Decreased pulses bilaterally. Nursing staff were able to establish two large-bore IVs immediately and they were patient was given crystalloid with pressure fusing bakes immediately. He was not unconscious he was awake and alert answering questions, and remarkably maintain a sense of humor throughout his entire stay here. Patient shows pallor in his conjunctiva. There is no scleral icterus. Head and neck is atraumatic. Airways widely patent. He is not vomiting. Respiratory his lungs are clear no wheezes rales or rhonchi. Heart sounds show no murmur. He is tachycardic. Skin was diaphoretic and clammy Electrolytes do not show evidence of edema swelling or phlebitis. Abdomen has a large infraumbilical incision from his previous surgeries but there is no peritoneal findings guarding or rebound rigidity. He had incontinence of stool and it was burgundy red colored liquid stool. Constitutional Vital Signs, click to edit/add: Last Vital Signs Temp 97.9 F 02/23/23 11:00 Pulse 100 H 02/23/23 14:10 Resp 19 02/23/23 14:10 BP 111/80 02/23/23 13:40 Pulse Ox 98 02/23/23 13:40 O2 Del Method Room Air 02/23/23 11:00 Course Vital Signs Vital signs: Vital Signs Temperature 97.9 F 02/23/23 11:00 Pulse Rate 104 H 02/23/23 11:00 Respiratory Rate 20 02/23/23 11:00 Blood Pressure 122/77 02/23/23 11:00 Pulse Oximetry 100 02/23/23 11:00 Oxygen Delivery Method Room Air 02/23/23 11:00 Temperature 97.9 F 02/23/23 11:00 Pulse Rate 100 H 02/23/23 14:10 Respiratory Rate 19 02/23/23 14:10 Blood Pressure 111/80 02/23/23 13:40 Pulse Oximetry 98 02/23/23 13:40 Oxygen Delivery Method Room Air 02/23/23 11:00 Medical Decision Making MDM Narrative Medical decision making narrative: the patient had a near syncopal episode with history of at least five copious bloody stools. Patient had type and screen and type and cross for two units of blood as I felt he might need urgent blood transfusion. He did stabilize after 2500 mL of crystalloid that was rapidly infused. His heart rate slowed. His pulse oximetry is cognition and mental status greatly improved. A follow-up hemoglobin today shows [facility] 12.9. When he was admitted back several days ago he came in the hemoglobin is approximate sixteen summaries had a slow gradual deterioration. His BUN/creatinine are normal today. I immediately placed a call to our on-call surgeon and he felt in lieu of the patient's recent CT findings and brisk blood loss he should be transferred to a tertiary care facility. We made connections with [facility] and I spoke with both the gastrointestinal doctor and the hospitalist and they agree that he should be transferred. We have repeated a repeat hemoglobin. Since he stabilized I hesitate giving him blood transfusions at this time. If it is below nine I will go ahead and start the blood transfusions. While here in the department, at the recommendation of Dr. Escalera on surgery, we did pass a nasogastric tube and irrigated it, there was actually no coffee-ground material or bloody material whatsoever so I withdrew with an nasogastric tube after the irrigation Lab Data Labs: Lab Results 02/23/23 Range/Units 11:00 WBC 16.1 H (4.0-11.0) 10^3/uL RBC 4.38 L (4.70-6.10) 10^6/uL Hgb 12.9 L (14.0-18.0) g/dL Hct 38.8 L (42.0-54.0) % MCV 88.6 (80.0-94.0) fL MCH 29.5 (25.9-34.0) pg MCHC 33.2 (29.9-35.2) g/dL RDW 12.3 (11.0-15.0) % Plt Count 410 (150-450) 10^3/uL MPV 9.8 (9.5-13.5) fL Neut % (Auto) 60.3 (43.0-75.0) % Lymph % (Auto) 29.7 (20.5-60.0) % [place] % (Auto) 8.2 (1.7-12.0) % Eos % (Auto) 0.7 L (0.9-7.0) % Baso % (Auto) 0.5 (0.2-2.0) % Neut # (Auto) 9.7 H (1.4-6.5) 10^3/uL Lymph # (Auto) 4.8 H (1.2-3.8) 10^3/uL [place] # (Auto) 1.3 H (0.3-0.8) 10^3/uL Eos # (Auto) 0.1 (0.0-0.7) 10^3/uL Baso # (Auto) 0.1 (0.0-0.1) 10^3/uL Abs Immat Gran (auto) 0.10 H (0.00-0.03) 10^3/uL Imm/Tot Granulo (auto) 0.6 H (0.0-0.5) % PT 10.3 (9.0-11.6) sec INR 0.97 APTT 22.6 (22.3-36.2) sec Sodium 141 (136-145) mmol/L Potassium 3.8 (3.5-5.1) mmol/L Chloride 107 (98-107) mmol/L Carbon Dioxide 24.2 (21.0-32.0) mmol/L Anion Gap 13.6 BUN 24.0 H (7.0-18.0) mg/dL Creatinine 1.17 (0.70-1.30) mg/dL Est GFR ( Amer) >60 (>=60) Est GFR (Non-Af Amer) >60 (>=60) BUN/Creatinine Ratio 20.5 Glucose 119 H (74-106) mg/dL Calcium 8.4 L (8.5-10.1) mg/dL Total Bilirubin 0.2 (0.2-1.0) mg/dL AST 20 (15-37) U/L ALT 37 (16-63) U/L Alkaline Phosphatase 66 (46-116) U/L Total Protein 6.8 (6.4-8.2) g/dL Albumin 3.5 (3.4-5.0) g/dL Globulin 3.3 g/dL Albumin/Globulin Ratio 1.1 Blood Type O Positive Antibody Screen Negative Crossmatch See Detail Critical Care Time Critical Care Time Total Critical Care Time: 60 Discharge Plan Discharge Chief Complaint: Abdominal Pain Clinical Impression: Gastrointestinal bleed Patient Disposition: [facility] Time of Disposition Decision: 14:23 Prescriptions / Home Meds: No Action No Known Home Medications Referrals: HOAD BALDERAS [Primary Care Provider] - 1 week
--- NOTE | 2023-02-23 11:30 | XR_ITS ---
The [address] [address] Patient Name: CLAIRE BRAUN MRN: [id number] date: 1990 Sex: M Assigned Patient Location: ER Current Patient Location: ED.MAIN Accession/Order Number: [id number] Exam Date: 02/23/2023 11:25 Report Date: 02/23/2023 11:39 At the request of: DIMITRI JIMÉNEZ Procedure: XR chest 1V EXAMINATION: XR chest 1V HISTORY: gastrointestinal bleed COMPARISON: No relevant comparison available. TECHNIQUE: Supine FINDINGS: LUNGS: No significant pulmonary parenchymal abnormalities. VASCULATURE: No increased pulmonary vasculature. PLEURA: No pneumothorax, effusion, or pleural thickening. CARDIAC: No cardiomegaly or cardiac silhouette abnormality. MEDIASTINUM: No visible mass or adenopathy. BONES: No fracture or visible bone lesion. OTHER: Negative. XR/XR chest 1V IMPRESSION: No acute cardiopulmonary process Electronically authenticated by: NEYDA TERRAZAS Date: 02/23/2023 11:39
[2023-02-23 11:34] LABS: Basophils Absolute Auto 0.1 10^3/uL (0.0-0.1); Basophils Percent Auto 0.5 % (0.2-2.0); Eosinophils Absolute Auto 0.1 10^3/uL (0.0-0.7); Eosinophils Percent Auto 0.7 % (0.9-7.0); Hematocrit 38.8 % (42.0-54.0); Hemoglobin 12.9 g/dL (14.0-18.0); Immature Granulocytes Pct Auto 0.6 % (0.0-0.5); Lymphocytes Absolute Auto 4.8 10^3/uL (1.2-3.8); Lymphocytes Percent Auto 29.7 % (20.5-60.0); Mean Corpuscular HGB Conc 33.2 g/dL (29.9-35.2); Mean Corpuscular Hemoglobin 29.5 pg (25.9-34.0); Mean Corpuscular Volume 88.6 fL (80.0-94.0); Mean Platelet Volume 9.8 fL (9.5-13.5); Monocytes Absolute Auto 1.3 10^3/uL (0.3-0.8); Monocytes Percent Auto 8.2 % (1.7-12.0); Neutrophils Absolute Auto 9.7 10^3/uL (1.4-6.5); Neutrophils Percent Auto 60.3 % (43.0-75.0); Platelet Count 410 10^3/uL (150-450); Red Blood Count 4.38 10^6/uL (4.70-6.10); Red Cell Distribution Width 12.3 % (11.0-15.0); White Blood Count 16.1 10^3/uL (4.0-11.0)
[2023-02-23] MEDS: 0.9 % SODIUM CHLORIDE 1,000 ML 999 ML IV (11:34)
[2023-02-23] MEDS: PANTOPRAZOLE SODIUM 40 MG VIAL IV (11:34)
[2023-02-23 11:39] LABS: Alanine Aminotransferase 37 U/L (16-63); Albumin Globulin Ratio 1.1; Albumin Level 3.5 g/dL (3.4-5.0); Alkaline Phosphatase 66 U/L (46-116); Anion Gap 13.6; Aspartate Amino Transferase 20 U/L (15-37); BUN Creatinine Ratio 20.5; Bilirubin Total 0.2 mg/dL (0.2-1.0); Calcium 8.4 mg/dL (8.5-10.1); Carbon Dioxide 24.2 mmol/L (21.0-32.0); Chloride 107 mmol/L (98-107); Estimated GFR (African America >60 (>=60); Estimated GFR (Non-African Ame >60 (>=60); Globulin 3.3 g/dL; Glucose 119 mg/dL (74-106); Potassium 3.8 mmol/L (3.5-5.1); Sodium 141 mmol/L (136-145); Total Protein 6.8 g/dL (6.4-8.2)
[2023-02-23 11:43] LABS: INR 0.97; Partial Thromboplastin Time 22.6 sec (22.3-36.2); Prothrombin Time 10.3 sec (9.0-11.6)
--- NOTE | 2023-02-23 12:20 | PC.NURSE ---
This RN and another RN assisted NG tube placement per dr schwab order. pulled back fluid after confirming NG placement. Clear drainage, no blood or coffee ground. Dr Schwab verbal order now to remove NG tube. tube removed and pt having no respiratory issues
[2023-02-23] MEDS: ONDANSETRON PF 4 MG/2 ML VIAL IV (13:28)
[2023-02-23 14:40] LABS: Basophils Absolute Auto 0.1 10^3/uL (0.0-0.1); Basophils Percent Auto 0.3 % (0.2-2.0); Eosinophils Percent Auto 0.1 % (0.9-7.0); Hematocrit 34.9 % (42.0-54.0); Hemoglobin 11.4 g/dL (14.0-18.0); Immature Granulocytes Abs Auto 0.13 10^3/uL (0.00-0.03); Immature Granulocytes Pct Auto 0.7 % (0.0-0.5); Lymphocytes Percent Auto 10.5 % (20.5-60.0); Mean Corpuscular HGB Conc 32.7 g/dL (29.9-35.2); Mean Corpuscular Hemoglobin 29.2 pg (25.9-34.0); Mean Corpuscular Volume 89.3 fL (80.0-94.0); Mean Platelet Volume 9.5 fL (9.5-13.5); Monocytes Absolute Auto 0.7 10^3/uL (0.3-0.8); Monocytes Percent Auto 3.7 % (1.7-12.0); Neutrophils Absolute Auto 15.7 10^3/uL (1.4-6.5); Neutrophils Percent Auto 84.7 % (43.0-75.0); Platelet Count 355 10^3/uL (150-450); Red Blood Count 3.91 10^6/uL (4.70-6.10); Red Cell Distribution Width 12.5 % (11.0-15.0); White Blood Count 18.5 10^3/uL (4.0-11.0)
--- NOTE | 2023-02-23 15:38 | PC.NURSE ---
AT THIS TIME BLOOD IS TRANSFUSING NOW AT 200ML/HR. GOING TO BE TRANSFUSED DURING TRANSFER TO [facility]. NO REACTIONS AT THIS TIME. SEE VS
== END 2023-02-23 15:40 | disposition short-term general hospital (02) ==
PROVIDERS: Emergency Provider Emergency Medicine Emergency Medical Services; PCP Internal Medicine
DX: K92.2 Gastrointestinal hemorrhage, unspecified (principal); F17.210 Nicotine dependence, cigarettes, uncomplicated
CPT/HCPCS: 36415; 36430; 71045; 80053; 85025; 85610; 85730; 86850; 86900; 86901; 86920; 93005; 96374; 96375; 99285; G0328; P9016